=== PATIENT | male | born 1955 | race African-American/Black ===

== ENCOUNTER → 2016-12-21 | Outpatient (CLI) | payer MEDICARE, MEDICAID ==
[~2016-12-21] MED LIST: ATOR20TA86 PO; OMEP20 PO
== END | disposition home or self-care (01) ==
LOC: RADPV 09:45
PROVIDERS: ATTEND Internal Medicine Cardiovascular Disease
DX: I50.1 Left ventricular failure, unspecified (principal); I08.1 Rheumatic disorders of both mitral and tricuspid valves
CPT/HCPCS: 93306

== ENCOUNTER 2018-01-27 06:39 | Emergency (ER) | payer MEDICARE, MEDICAID ==
[~2018-01-27] VITALS: Ht 190.5 cm; Wt 100.0 kg
[2018-01-27] MEDS ORDERED: METH750T3 PO (07:12)
[2018-01-27] MEDS ORDERED: AMLO10TA55 PO (07:12)
[2018-01-27] MEDS ORDERED: MORPHINE SULFATE 10 MG/ML SYRINGE IM ONE (08:15)
[2018-01-27 09:21] VITALS: BP 164/91
== END 2018-01-27 09:57 | disposition home or self-care (01) ==
LOC: EMS 06:39
DX: M54.6 Pain in thoracic spine (principal); M54.5 Low back pain; E78.00 Pure hypercholesterolemia, unspecified; I10 Essential (primary) hypertension; Z79.899 Other long term (current) drug therapy
CPT/HCPCS: 96372; 99283; J2270

== ENCOUNTER 2018-02-15 01:35 | Emergency (ER) | payer MEDICARE, MEDICAID ==
[~2018-02-15] VITALS: Ht 188 cm; Wt 97.7 kg
[~2018-02-15 01:35] MED LIST changes: +AMLO10TA55 PO; +METH750T3 PO; -OMEP20 PO
[2018-02-15] MEDS ORDERED: MORPHINE SULFATE 4 MG/ML SYRINGE IM ONE (03:00)
[2018-02-15] MEDS ORDERED: CYCLOBENZAPRINE HCL 10 MG TABLET PO ONE (03:00)
[2018-02-15] MEDS ORDERED: ONDANSETRON HCL 4 MG/2 ML VIAL IM ONE (03:00)
[2018-02-15 03:50] VITALS: BP 139/72
== END 2018-02-15 03:56 | disposition home or self-care (01) ==
LOC: EMS 01:35
DX: M51.36 Other intervertebral disc degeneration, lumbar region (principal); E78.00 Pure hypercholesterolemia, unspecified; I10 Essential (primary) hypertension; Z79.899 Other long term (current) drug therapy
CPT/HCPCS: 96372; 99284; J2270; J2405

== ENCOUNTER 2018-12-09 15:33 | Emergency (ER) | payer MEDICARE, MEDICAID ==
[~2018-12-09] VITALS: Ht 188 cm; Wt 100.0 kg
[2018-12-09 17:25] LABS: BASOPHILS % (AUTO) 0.8 % (0.0-2.0); EOSINOPHILS % (AUTO) 3.2 % (1.0-6.0); HEMATOCRIT 40.1 % (41-53); HEMOGLOBIN 13.5 g/dL (13.5-17.5); LYMPHOCYTES # (AUTO) 1.4 K/uL (1.0-4.8); LYMPHOCYTES % (AUTO) 23.1 % (22.0-44.0); MEAN CORPUSCULAR HEMOGLOBIN 30.6 pg (26.0-34.0); MEAN CORPUSCULAR HGB CONC 33.7 G/dL (31.0-37.0); MEAN CORPUSCULAR VOLUME 91 fL (80-100); MONOCYTES # (AUTO) 0.5 K/uL (0.1-1.0); NEUTROPHILS # (AUTO) 4.1 K/uL (1.8-7.7); NEUTROPHILS % (AUTO) 64.9 % (40.0-70.0); PLATELET COUNT (AUTO) 322 K/uL (150-450); RED BLOOD CELL COUNT(AUTO) 4.43 MIL/uL (4.50-5.90); RED CELL DISTRIBUTION WIDTH 13.9 % (11.5-14.5)
[2018-12-09 17:37] LABS: ANION GAP 7 mmol/L (8-16); CALCIUM, TOTAL 9.3 mg/dL (8.8-10.5); CARBON DIOXIDE 28 mmol/L (22-29); CHLORIDE 105 mmol/L (98-107); CREATININE 0.55 mg/dL (0.60-1.30); GLOMERULAR FILTR. RATE CALC > 60 mL/min (>60); GLUCOSE,RANDOM 84 mg/dL (70-110); POTASSIUM 4.6 mmol/L (3.5-5.1); SODIUM SERUM 140 mmol/L (136-145); UREA NITROGEN, BLOOD 19 mg/dL (7-18)
[2018-12-09 17:43] LABS: ALANINE AMINOTRANSFERASE 34 U/L (12-78); ALBUMIN 4.1 g/dL (3.4-5.0); ALKALINE PHOSPHATASE 87 U/L (46-116); ASPARTATE AMINOTRANSFERASE 29 U/L (15-37); BILIRUBIN,TOTAL 0.8 mg/dL (0.1-1.0); TOTAL PROTEIN, SERUM 7.5 g/dL (6.4-8.2)
[2018-12-09 17:45] LABS: B-TYPE NATRIURETIC PEPTIDE 23 pg/mL (0-100)
[2018-12-09 19:01] VITALS: BP 135/75
== END 2018-12-09 19:10 | disposition home or self-care (01) ==
LOC: EMS 15:34
DX: I89.0 Lymphedema, not elsewhere classified (principal); I10 Essential (primary) hypertension; M79.89 Other specified soft tissue disorders; M19.90 Unspecified osteoarthritis, unspecified site; E78.00 Pure hypercholesterolemia, unspecified; G89.29 Other chronic pain
CPT/HCPCS: 93970

== ENCOUNTER 2018-12-22 06:53 | Emergency (ER) | payer MEDICARE, MEDICAID ==
[~2018-12-22] VITALS: Ht 188 cm; Wt 45.5 kg
[~2018-12-22 06:53] MED LIST changes: -METH750T3 PO
[2018-12-22] MEDS ORDERED: IBUP-2070 PO (07:06)
[2018-12-22] MEDS ORDERED: BACL10TA PO (07:06)
[2018-12-22] MEDS ORDERED: HYD50 PO (07:06)
[2018-12-22] MEDS ORDERED: FUROSEMIDE 20 MG TABLET PO ONE (07:45)
[2018-12-22 08:57] VITALS: BP 124/73
== END 2018-12-22 09:11 | disposition home or self-care (01) ==
LOC: EMS 06:55
DX: I89.0 Lymphedema, not elsewhere classified (principal); I10 Essential (primary) hypertension; E78.00 Pure hypercholesterolemia, unspecified; M19.90 Unspecified osteoarthritis, unspecified site; G89.29 Other chronic pain